=== PATIENT | female | born 1960 | race Caucasian/White ===

== ENCOUNTER 2019-03-25 05:59 | Inpatient (IN) | payer OTHER ==
[~2019-03-25] VITALS: Ht 165.1 cm; Wt 98.3 kg
[2019-03-25] VITALS (22 sets, daily range): BP systolic 101–129; BP diastolic 48–85; PULSE 58–88; RESP 6–19; Ht 165.1 cm; Wt 98.3 kg
[~2019-03-25 05:59] MED LIST: NITR-58 PO; PHEN-537 PO
[2019-03-25] MEDS ORDERED: ACETAMINOPHEN 500 MG TAB PO ONE (06:30)
[2019-03-25] MEDS ORDERED: VASOPRESSIN 20 UNITS INJ ONE (06:59)
[2019-03-25] MEDS ORDERED: DESFLURANE 15 MIN ONE (07:00)
--- NOTE | 2019-03-25 07:02 | PREAC ---
Date/Time of Note Date/Time of Note DATE: 03/25/19 TIME: 06:54 Anesthesia Eval and Record Evaluation Time Pre-Procedure Interview DATE: 03/25/19 TIME: 06:54 Age 58 Sex female NPO: 8 hrs Preoperative diagnosis rectocele, cystocele Planned procedure Posterior repair possible anterior repair Past Medical History Past Medical History: Includes GI: Obesity Surgery & Anesthesia Issues No known issue Meds Anticoagulation: No Beta Polina within 24 hr: No Reason Beta Polina not given: Pt. not on B-Polina Active Scripts Phenazopyridine Hcl* (Pyridium*) 100 Mg Tab, 100 MG PO TID PRN for URINARY PAIN, #8 TAB Prov:COURTNEY HENRIQUEZ PA-C 04/29/16 Nitrofurantoin Monohyd Macrocr* (Macrobid*) 100 Mg Capsr, 100 MG PO BID for 7 Days, CAP Prov:COURTNEY HENRIQUEZ PA-C 04/29/16 Meds reviewed: Yes Allergies Coded Allergies: No Known Allergy (Unverified , 11/26/14) Allergies Reviewed: Yes Labs/Studies Labs Reviewed: Reviewed by anesthesiologist test: Negative Pre-procedure Exam Airway: Adequate mouth opening, Adequate thyromental dist Mallampati: Mallampati II Teeth: Abnormal (broken lower right tooth; missing molars) Lung: Normal Heart: Normal ASA Physical Status ASA physical status: 2 Emergency: None Planned Anesthetic General/MAC: ETT Pre-operative Attestations Prior to commencing anesthesia and surgery, the patient was re-evaluated, there was verification of: *The patient's identity *The results of appropriate recent lab work and preoperative vital signs *The above evaluation not changing prior to induction *Anesthetic plan, risk benefits, alternative and complications discussed with patient/family; questions answered; patient/family understands, accepts and wishes to proceed. BALA SRIVASTAVA Mar 25, 2019 07:02
[2019-03-25] MEDS ORDERED: LEVO175T6 ORAL (07:12)
[2019-03-25] MEDS ORDERED: LATA2.5D2 OP (07:12)
[2019-03-25] MEDS: LACTATED RINGER'S 1,000 ML IV SCH ×5 (07:14→19:25)
[2019-03-25] MEDS ORDERED: PROPOFOL 40 ML ONE (07:18)
[2019-03-25] MEDS ORDERED: FENTAnyl 50 MCG/ML VIAL ONE ×2 (07:18→08:36)
[2019-03-25] MEDS ORDERED: ROCURONIUM 50 MG INJ ONE (07:18)
[2019-03-25] MEDS ORDERED: MIDAZOLAM 1 MG/ML 2 ML INJ ONE (07:18)
[2019-03-25] MEDS ORDERED: CEFAZOLIN 1 GM INJ ONE (07:18)
[2019-03-25] MEDS ORDERED: FAMOTIDINE 20 MG INJ ONE (07:20)
[2019-03-25] MEDS ORDERED: ONDANSETRON 4 MG INJ ONE (07:20)
--- NOTE | 2019-03-25 07:43 | PREOPHP ---
DATE OF ADMISSION: 03/25/2019 HISTORY OF PRESENT ILLNESS: This is a 56-year-old lady, 6, para 5 with 5 normal deliveries. Her last normal menstrual period was at the age of 52. She was admitted as outpatient for third-deg ree rectocele and first-degree cystocele. The patient complains of something coming out from the vag levi and she feels lower abdominal pressure and low back pains. She was fitted for a pessary for a se cond-degree rectocele last year as she was very comfortable with having that rectocele. She had the pessary she had used but refused to use it now. She wanted to have a permanent procedure. The proce dures were explained to the patient as to go for posterior repair and a remote possibility of anterio r repair. The procedures were explained to her and she understood everything totally. The risks, be nefits, and alternatives were discussed with her as well. PAST PERSONAL HISTORY: No history of TB or asthma. ALLERGIES: NO ALLERGIES. SOCIAL HISTORY: The patient does not smoke. She does not drink. PAST SURGICAL HISTORY: She had tubal ligation in 1997. She had a tummy tuck in 2001. She had breas t reduction in 2001 as well. She had a D and C done in 1987. FAMILY HISTORY: Parents have high blood pressure and cancer. GYNECOLOGIC HISTORY: She had menarche at the age of 14, every 28 days interval, 3 to 4 days' duratio n and moderate in amount. OBSTETRICAL HISTORY: She is 6, para 5 with 1 spontaneous . All normal deliveries. REVIEW OF SYSTEMS: CARDIOVASCULAR: No chest pains. RESPIRATORY: No cough. GASTROINTESTINAL: No diarrhea, no vomiting. GENITOURINARY: No dysuria. PHYSICAL EXAMINATION: GENERAL: Reveals a conscious, coherent lady in no acute distress. VITAL SIGNS: Her blood pressure 120/80, pulse rate 80 per minute, respirations 16 per minute. BREASTS, HEART AND LUNGS: Within normal limits. ABDOMEN: Soft and obese. PELVIC: Revealed the cervix to be high in the vagina with a third-degree rectocele and a first-degre e cystocele. The patient is sexually active and so, as mentioned, she wanted only to go for the rectocele repair a nd if needed, under anesthesia, she may go for the cystocele. The procedures were explained to the p atient and she understood everything totally. The risks, benefits, and alternatives were discussed w ith her as well. Dictated By: DEREJE ROBERT/ROGELIO Conf#: [id number] DID#: [id number]
[2019-03-25] MEDS ORDERED: DIPHENHYDRAMINE 50 MG INJ IV PRN (08:00)
[2019-03-25] MEDS ORDERED: HYDROmorphONE 1 MG/5 ML IV SYRINGE IV PRN ×3 (08:00)
[2019-03-25] MEDS ORDERED: morphine 2 MG INJ IV PRN ×2 (08:00)
[2019-03-25] MEDS ORDERED: LABETALOL HCL 20MG INJ IV PRN (08:00)
[2019-03-25] MEDS ORDERED: SUGAMMADEX SODIUM 200 MG/2 ML VIAL IV ONE (08:00)
[2019-03-25] MEDS ORDERED: MEPERIDINE 25 MG INJ IV PRN (08:00)
[2019-03-25] MEDS ORDERED: ALBUTEROL 0.083% (NEB) 2.5 MG/3 ML AMP HHN PRN (08:00)
[2019-03-25] MEDS ORDERED: FENTAnyl 50 MCG/ML VIAL IV PRN ×2 (08:00)
[2019-03-25] MEDS ORDERED: ONDANSETRON 4 MG INJ IV PRN ×2 (08:00→09:30)
[2019-03-25] MEDS ORDERED: OXYCODONE/ACETAMINOPHEN (5/325) TAB PO PRN ×2 (08:00)
[2019-03-25] MEDS ORDERED: PHENYLephrine (100 MCG/ML) 10ML SYG ONE (08:01)
[2019-03-25] MEDS ORDERED: PROVENTIL HFA 6.7GM INHALER ONE (09:05)
--- NOTE | 2019-03-25 09:16 | SIPON ---
Date/Time of Note Date/Time of Note DATE: 03/25/19 TIME: 09:15 Operative Report Preoperative Diagnosis CYSTOCELE RECTOCELE Postoperative Diagnosis CYSTOCELE RECTOCELE Operation/Procedure Performed ANTERIOR AND POSTERIOR REPAIR Surgeon see signature line facilities assistant DR HERNANDEZ Anesthesia: general Estimated blood loss: 50 - 100 ml's Transfusion Required none Specimen VAGINAL MUCOSA Grafts/Implants none Complications none DEREJE MEDEL MD Mar 25, 2019 09:16
--- NOTE | 2019-03-25 09:22 | PAC ---
Date/Time of Note Date/Time of Note DATE: 03/25/19 TIME: 09:21 Post-Anesthesia Notes Post-Anesthesia Note Last documented vital signs Vital Signs Date Temp Pulse Resp B/P (MAP) Pulse Ox O2 O2 Flow FiO2 Time Delivery Rate 03/25/19 98.2 07:08 03/25/19 98.1 85 88 18 16 126/71 95 100 Room 07:00 0916 (89) 114/ Air face 60 mask 10L Activity: WNL Respiratory function: WNL Cardiovascular function: WNL Mental status: Baseline Pain reasonably controlled: Yes Hydration appropriate: Yes Nausea/Vomiting absent: Yes BALA SRIVASTAVA Mar 25, 2019 09:22
[2019-03-25] MEDS ORDERED: HYDROCODONE/APAP (5/325) TAB PO PRN ×2 (13:00)
[2019-03-25] MEDS: IBUPROFEN 800 MG TAB PO PRN (21:59)
[2019-03-26 02:45] VITALS: BP 101/53; PULSE 64; RESP 18
[2019-03-26] MEDS: LACTATED RINGER'S 1,000 ML IV SCH ×3 (05:10→17:16)
[2019-03-26] MEDS ORDERED: MAGNESIUM HYDROXIDE 30ML CUP PO ONE ×2 (06:00→17:00)
[2019-03-26] MEDS ORDERED: BISACODYL 10 MG SUPP PR ONE ×2 (06:00→17:00)
[2019-03-26 07:47] VITALS: PULSE 61; RESP 18
[2019-03-26 07:48] VITALS: BP 118/65
--- NOTE | 2019-03-26 11:43 | OPR ---
DATE OF OPERATION: 03/26/2019 PREOPERATIVE DIAGNOSIS: Symptomatic rectocele. A third degree rectocele, second degree cystocele an d fascial vaginal prolapse. SURGEON: Dereje Tello MD. LEAD GENERATION MARKETING MANAGER: Marianne Seth MD. ANESTHESIA: General. OPERATION: Pelvic exam under anesthesia, a cystocele repair, rectocele repair and partial fascial va ginectomy. OPERATIVE TECHNIQUE: Under general anesthesia, the patient was prepped and draped in the usual fashi on for vaginal surgery. Pelvic exam under anesthesia revealed the cervix to be firm, uterus about 6 weeks size, and adnexa were negative for masses. Second degree cystocele was noted and then a third degree rectocele was noted with the vagina with a fascial vaginal prolapse. Then, the heavy weight v aginal retractor was inserted. Then the Dunham catheter was inserted and the bladder was drained. Th e Dunham catheter was clamped. Two Allis clamps were placed at the anterior vaginal mucosa above the cervix and then an incision was performed transversely on the anterior vaginal mucosa and the anterio r vaginal mucosa was from the bladder by sharp and blunt dissection. After the vaginal mucosa from the bladder, then this was done by putting the Allis clamps on the anterior vagin al mucosa all the way to about 1 cm below the urethra. A Jennifer plication suture at the mucocutaneous junction on the left and right side. About 3 Jennifer plication sutures were put in. Then the anterio r vaginal mucosa was excised. Then the interrupted suture with 2-0 Vicryl was used to close the vagi nal mucosa. About 6 interrupted sutures were put in. Patient tolerated the cystocele repair and thi s was followed by the rectocele repair. Two Allis clamps were placed at the angle of the vagina on b oth sides. Then, a transverse incision was done at the mucocutaneous junction of the vagina. Then t he vaginal mucosa was from the rectum by sharp and blunt dissection, and this was done in t his fashion. Two Kellys were placed at the mucocutaneous junction and then anteriorly Allis clamps w ere placed. This was used to separate the vaginal mucosa from the rectum and this was done up to abo ut 1-inch below the posterior vaginal mucosa below the cervix. Then the right vaginal mucosa was sep arated from the rectum by sharp and blunt dissection. The same thing was done first on the right erik e and then on the left side. Then the vaginal mucosa was excised and the same process was done on the right side and when about 2 inches of vaginal mucosa was again on the right side, the same thing was done on the left side. Two inches of vaginal mucosa was , then the Jennifer plicatio n suture was used on the mucous area of the vagina and about 4 Jennifer plication sutures. This is rect ocele. Then Jennifer plication sutures were placed at the mucocutaneous junction of the rectum and the vagina about 6 of these Jennifer plication sutures were used. Then the vaginal mucosa was excised. The n the vaginal mucosa was sutured with interrupted suture with 2-0 Vicryl. About 20 of them were put in. The perineal muscle was sutured with one [id number] suture with 0 Vicryl. While I was putt ing the sutures, I put my finger inside the rectum to make sure that no suture was put in on the rect um. The patient tolerated the procedure well. Estimated blood loss about 100 mL. Then, a vaginal p acking was left for 24 hours. Also, the Dunham catheter was left and to be removed the day after the surgery. The urine output was noted to be clear. Dictated By: DEREJE ROBERT/ROGELIO Conf#: [id number] DID#: [id number]
[2019-03-26] MEDS: IBUPROFEN 800 MG TAB PO PRN (14:46)
[2019-03-26 15:32] VITALS: BP 122/78; PULSE 70; RESP 18
[2019-03-26] MEDS ORDERED: HYDROCODONE/APAP (5/325) TAB PO PRN ×2 (18:00)
[2019-03-26] MEDS ORDERED: IBUPROFEN 800 MG TAB PO PRN (18:00)
--- NOTE | 2019-03-30 19:56 | PN ---
DATE: 03/26/2019 SUBJECTIVE: The patient feels good. Had good bowel movement. Had good urine output. Minimal pelvi c pain. OBJECTIVE: VITAL SIGNS: She is afebrile. Vital signs are stable. ABDOMEN: Soft. No tenderness noted. VAGINAL: No vaginal bleeding noted. Vaginal packing was removed in the morning. ASSESSMENT: Postop day #1. PLAN: Continue with the bladder training until 12:00 noon and then discontinue the Dunham and observe urine output. She will go home today in the evening if good urine output. The patient was counsele d. She was instructed. She was told to come back to the clinic in 1 week. Dictated By: DEREJE ROBERT/ROGELIO Conf#: [id number] DID#: [id number]
--- NOTE | 2019-03-31 03:49 | DS ---
DATE OF ADMISSION: 03/25/2019 DATE OF DISCHARGE: 03/26/2019 This is a 58-year-old lady, 5, para 5 with 5 normal deliveries. Last normal menstrual period was at the age of 52. HISTORY OF PRESENT ILLNESS: See dictated history and physical. PHYSICAL EXAMINATION: See dictated history and physical. ADMITTING DIAGNOSES: 1. Third degree rectocele. 2. First degree cystocele. 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 She tolerated the procedure well. She did have good postoperative course. She had good urine out put. The first day after the surgery, she had good bowel movement. She was discharged home on the irst postoperative day on general diet and activity was restricted. She was having good urine output . She has good bowel movement. She was counseled. She was instructed. She was told to start her M acrobid at home. She was given prescription for pain. FINAL DIAGNOSES: 1. Third degree rectocele. 2. First degree cystocele. 3. Partial vaginal prolapse. Dictated By: DEREJE ROBERT/ROGELIO Conf#: [id number] DID#: [id number]
== END 2019-03-26 18:35 | disposition home or self-care (01) | DRG 747 ==
LOC: SDS 05:59 → REC 09:16 → MS1 10:29
PROVIDERS: ADMIT Obstetrics & Gynecology; ATTEND Obstetrics & Gynecology
PROC: 0JQC3ZZ Repair Pelvic Region Subcutaneous Tissue and Fascia, Percutaneous Approach (ICD-10-PCS; principal; 2019-03-26)
PROC: 0UBGXZZ Excision of Vagina, External Approach (ICD-10-PCS; 2019-03-26)
PROC: 0JQC3ZZ Repair Pelvic Region Subcutaneous Tissue and Fascia, Percutaneous Approach (ICD-10-PCS; 2019-03-26)
DX: N81.10 Cystocele, unspecified (principal); N81.6 Rectocele
CPT/HCPCS: 80053; 84702; 85025; 86850; 86900; 86901; 87086; 88305; J0690; J2250; J2370; J2405; J3010; J7120